=== PATIENT | male | born 1990 | race Caucasian/White ===

== ENCOUNTER 2021-09-02 16:15 | Emergency (ER) | payer SELFPAY ==
[~2021-09-02] VITALS: Ht 167.6 cm; Wt 65.8 kg
[2021-09-02 16:45] LABS: HEMATOCRIT 45.7 % (36.7-47.1); MEAN CORPUSCULAR HEMOGLOBIN 32.6 uug (23.8-33.4); PLATELET COUNT (AUTO) 228 K/uL (152-348)
[2021-09-02] MEDS ORDERED: ONDANSETRON 4 MG/2 ML VIAL ONE (16:49)
[2021-09-02] MEDS ORDERED: KETOROLAC TROMETHAMINE 15 MG INJ ONE (16:54)
[2021-09-02 16:57] LABS: BILIRUBIN,TOTAL 0.5 mg/dL (0.2-1.0); CREATININE 0.8 mg/dL (0.6-1.3); POTASSIUM 3.6 mmol/L (3.5-5.1)
[2021-09-02] MEDS ORDERED: IV NORMAL SALINE 1000 ML BAG IV ONE (17:00)
[2021-09-02] MEDS ORDERED: KETOROLAC TROMETHAMINE 15 MG INJ IVP ONE (17:00)
[2021-09-02] MEDS ORDERED: ONDANSETRON 4 MG/2 ML VIAL IV ONE (17:00)
--- NOTE | 2021-09-02 17:10 | NUR ---
PT IS IN ROOM #2A. DR LANDERS EVALUATED THE PT.
[2021-09-02] MEDS ORDERED: OMEP20CA15 PO (18:07)
--- NOTE | 2021-09-02 18:39 | NUR ---
PT WAS D/C'd TO HOME. D/C INSTRUCTIONS GIVEN TO THE PT BY DR LANDERS.
[2021-09-02 18:41] VITALS: BP 132/71
== END 2021-09-02 18:44 | disposition home or self-care (01) ==
LOC: ER 16:18
DX: R10.13 Epigastric pain (principal); R11.2 Nausea with vomiting, unspecified; Z79.899 Other long term (current) drug therapy
CPT/HCPCS: 36415; 74176; 76705; 80053; 82150; 83690; 84484; 85025; 93005 ×2; 96361; 96374; 96375; 99285; J1885; J2405; 70030-TC; A4663; J7030